=== PATIENT | female | born 1950 | race Caucasian/White ===

== ENCOUNTER → 2017-05-03 13:06 | Outpatient (CLI) | payer MEDICARE, OTHER, SELFPAY ==
[2017-05-03 14:16] LABS: Absolute Lymphocyte Count 1.85 X10^3/ul (0.83-4.51); Absolute Neutrophil Count 4.2 X10^3/uL (2.0-7.7); Basophil# 0.04 X10^3/uL; Basophil% 0.6 % (0-1); Eosinophil# 0.16 X10^3/uL; Eosinophils% 2.4 % (0-5); Hematocrit 40.9 % (37-47); Hemoglobin 13.2 g/dl (12.0-15.0); Lymphocyte # 1.85 X10^3/ul (4.0); Lymphocyte % 27.2 % (19-41); Mean Corp Hgb Conc 32.3 g/gl (32-36); Mean Corpuscular Hgb 28.5 pg (27.0-32.0); Mean Corpuscular Volume 88.3 fL (81-99); Mean Platelet Vol. 10.9 fl (6.2-12.0); Monocyte# 0.58 X10^3/uL; Monocyte% 8.5 % (0-10); Neutrophil # 4.15 X10^3/uL (2.7-7.7); Platelet Count 225 K/mm3 (150-450); RBC Distribution Width CV 13.9 % (11.6-14.6); RBC Distribution Width SD 44.1 fl (35.1-43.9); Red Blood Count 4.63 M/mm3 (4.2-5.4); White Blood Count 6.8 K/mm3 (4.4-11.0)
[2017-05-03 14:18] LABS: POSITIVE COUNT NO; POSITIVE DIFFERENTIAL NO; POSITIVE MORPHOLOGY NO
[2017-05-03 14:23] LABS: Erythrocyte Sedimentation Rate 10 mm/hr (0-30)
--- NOTE | 2017-05-03 14:35 | HPBI_ITS ---
MAMMOGRAPHY - BILATERAL SCREENING REASON FOR EXAM: Female, 67 years old. Routine annual screening examination. PERTINENT HISTORY: Non-contributory. TECHNIQUE: Digital bilateral breast gabriela (3D mammographic acquisition) in the CC and MLO projections. 2-D mediolateral oblique (MLO) and craniocaudad (CC) views of both breasts were obtained. CAD: Full Field Digital Mammography with Computer Added Detection was performed. COMPARISON: Comparison is made with prior study dated April 25, 2016 and April 18, 2015. FINDINGS: Breast Composition: The breasts are heterogeneously dense, which may obscure small masses. There are no dominant masses or suspicious calcifications. Stable small bilateral benign appearing axillary lymph nodes. No other significant abnormalities are identified. There has been no significant change since the prior study. HPBI/SCREENING MAMM (CAD), BILAT IMPRESSION: Stable bilateral screening mammogram. Yearly follow-up mammogram recommended. (A) ASSESSMENT CATEGORY: BIRADS Category 2: Benign. A letter regarding these results will be sent to the patient by the facility within 30 days. Approximately 10% of breast cancers are not detected by mammography. A normal mammogram should not delay biopsy of a clinically suspicious abnormality. [id number] Electronically Signed: Ralph Santos MD at 15:29 EST Tel [phone], Service support ,
[2017-05-03 14:45] LABS: ALB/GLOB Ratio 1.2 RATIO (0.9-2.4); AST(SGOT) 22 U/L (15-37); Alanine Aminotransfer ALT/SGPT 39 U/L (13-56); Albumin, Serum 3.9 g/dL (3.2-5.0); Alkaline Phosphatase 80 U/L (45-117); Anion Gap 8 (5-15); BUN 20 mg/dL (7-18); BUN/Creat Ratio 25.6 RATIO (10-20); CRP < 2.90 mg/L (0.0-3.0); Calcium,Total 8.7 mg/dL (8.5-10.1); Chloride 106 mmol/L (98-107); Creatinine, Serum 0.78 mg/dL (0.55-1.02); EST Glomerular Filtration Rate 78 mL/min (>60); Est Glom Filt Rate - Afr Amer 94 mL/min (>60); Globulin 3.2 g/dL (2.2-4.2); Glucose 75 mg/dL (74-106); Potassium 3.6 mmol/L (3.5-5.1); Protein, Total 7.1 g/dL (6.4-8.2); Rheumatoid Factor < 10.0 IU/mL (<15); Sodium Level 141 mmol/L (136-145)
[2017-05-06 09:37] LABS: SJOGREN'S Anti-SS-A test < 0.2 AI (0.0-0.9); SJOGREN'S Anti-SS-B test < 0.2 AI (0.0-0.9)
[2017-05-06 10:36] LABS: ANTINUCLEAR ANTIBODIES DIRECT Positive (Negative)
[2017-05-09 16:44] LABS: CCP IgG Antibodies 7 units (0-19); HEPATITIS B SURFACE AG Positive (Negative); HLA B27 Negative (.); Hep B Surface Antibodies Non Reactive (.); Hep C Antibodies 0.1 s/co ratio (0.0-0.9)
== END ==
PROVIDERS: Internal Medicine Rheumatology; Family Provider Family Medicine; PCP Family Medicine; Visit Provider Obstetrics & Gynecology
DX: Z12.31 Encounter for screening mammogram for malignant neoplasm of breast (principal); M06.4 Inflammatory polyarthropathy; M35.00 Sjogren syndrome, unspecified; M15.9 Polyosteoarthritis, unspecified; E03.9 Hypothyroidism, unspecified; E78.5 Hyperlipidemia, unspecified; I34.1 Nonrheumatic mitral (valve) prolapse
CPT/HCPCS: 36415; 77063; 77067; 80053; 81374; 85025; 85652; 86038; 86140; 86200; 86235; 86431; 86706; 86803; 87340

== ENCOUNTER → 2017-05-27 10:55 | Outpatient (CLI) | payer MEDICARE, OTHER, SELFPAY ==
[2017-05-27 12:40] LABS: Color, Urine Yellow (Yellow); Glucose, Dipstick Normal (Normal); Ketone-Dipstick Negative (Negative); Leukocyte Esterase-Dipstick Negative /ul (Negative); Nitrite-Dipstick Negative (Negative); Occult Blood-Urine Negative /ul (Negative); Protein-Dipstick Negative (Negative); Urine Bilirubin Dipstick Negative (Negative); Urine Clarity Clear (Clear); Urine Urobilinogen Normal (Normal)
[2017-05-27 12:55] LABS: Protein, Urine (Random) 6.3 mg/dL (<11.9); Protein:Creat Ratio 346 mg/g CRE (0-200)
[2017-05-28 11:17] LABS: Complement C3 124 mg/dL (82-167)
[2017-05-28 14:07] LABS: Anti-Jo <0.2 AI (0.0-0.9); Anti-Scleroderma-70 AB <0.2 AI (0.0-0.9); RNP Ab <0.2 AI (0.0-0.9); SJOGREN'S Anti-SS-A test < 0.2 AI (0.0-0.9); SJOGREN'S Anti-SS-B test < 0.2 AI (0.0-0.9); Smith Ab <0.2 AI (0.0-0.9)
[2017-05-28 15:59] LABS: Anti-Centromere B Ab <0.2 AI (0.0-0.9); Anti-dsDNA Ab 41 IU/mL (0-9)
== END ==
PROVIDERS: Family Provider Family Medicine; PCP Family Medicine; Visit Provider Internal Medicine Rheumatology
DX: M06.4 Inflammatory polyarthropathy (principal); M35.00 Sjogren syndrome, unspecified; M15.9 Polyosteoarthritis, unspecified; E03.9 Hypothyroidism, unspecified; E78.5 Hyperlipidemia, unspecified; I34.1 Nonrheumatic mitral (valve) prolapse
CPT/HCPCS: 36415; 81002; 82570; 84156; 86160; 86225; 86235

== ENCOUNTER 2017-06-19 09:30 | Outpatient (RCR) | payer MEDICARE, OTHER, SELFPAY ==
--- NOTE | 2017-04-18 12:49 | HP.OTEVAL_ITS ---
Patient's Visit Information JACKSON WESTON is a 67 year old F, referred to Occupational Therapy by DR.DDAVIS Jazlyn, with a diagnosis of OA of R hand. Date of Evaluation: 04/18/17 Occupational Therapist: Rohini Murphy - Subjective Subjective: Pt., Jackson, arrived and noted that inital injury occured when daughters dog jammed finger. She noted this occured over a year agoa nd has since hurt. She's been seeing Dr. Muller and got x-rays in september. Pain persisted and recently recieved cortisone injection on saturday. She care for grandkids. - Pain Right Hand 0 Pain Intensity Range: 5, 6 - Objective Objective/Observation: Nodules over DIP on R hand , especially index finger. Some increased hyper ext. at R IF PIP. Decreased ROM in R IF compared to L IF. - ROM Wrist: flex R 0-63, L 0-79; ext R 0-46, L 0-55 MP: 2ND R 15-80, L 7-78 PIP: 2ND R -11-98, L5-100 DIP: 2ND R 10-41, L 12-51 - Strength Rig Hand: R 33, L 33 Lateral Pinch: R 6, L 10 Tripod Pinch: R 8, L 10 Tip-to-Tip Pinch: R 5, L 6 - Sensation Sensation Comments: Denies numbness and tingling in that finger. - DASH-Disabilities of Arm, Shoulder& Hand DASH Sum: 77 - Goals Goal:: Pt. 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 Goal:: Jackson to increase R hand and 2nd digit ROM to that of L to promote increased ability to complete manipulation and FMC to complete gardening and self-care tasks by d/c. Goal:: Jackson to have have no more than 0-1/10 pain in R hand 4/5 trials 80% of the time to complete ADL/IADLs by d/c. Goal:: Jackson to be mod I to complete energy conservation and jt protection strategies 4/5 trials in all ADL/IADLs to promote (i) and decreased pain by d/c. Goal:: Jackson to be mod I to complete all ADL/IADLs with use of a/e if needed to manage pain by d/c. Goal:: Jackson to complete HEP to promote endurance, stability , and strength of R MCP, PIP, and DIP to promote increased ability to complete ADL/IADLs by d/c. - Rehabilitation General Assessment: Jesus arrived and oT evaulation completed on this date. She noted cortisone shot occured this past saturday ad pain has been consisent in R hand around RIF MCP and PIP over the last year. She has decreased R hand mobility and strength compared to L nonaffected. OT to work on increased ROM and strength while decreasing pain. Education on a/e and other devices to help decrease hand pain to be provided. Rehabilitation Potential: Good - Anticipated Interventions Anticipated Interventions: A/AAROM/PROM, Strengthening, Edema Control, Scar Care , Massage, Modalities, Orthoses, Joint Protection/Energy Conservation, Fine Motor Coord/Priyank, Visual/Perceptual Skills, ADL Training, Caregiver Training, Home Program - Visit Plan Frequency: 2x /Week Duration: 4-6 Weeks General Plan: OT to work on decreasing painw hile increasing ROM, strength,a nd ability to complete ADL/IADLs including leisure interests of gardening. TEXT: Thank you for the opportunity to evaluate your patient. For Medicare and Medicare HMO plans, please review the plan of care and approve it. It will need to be FAXED BACK to us at [phone] for Medicare purposes. Please let me know if there are questions or concerns regarding this plan of care. Physician Signature: Date:
--- NOTE | 2017-06-19 11:52 | OTREVAL_ITS ---
Ad Muller, It has been my pleasure to treat JACKSON WESTON over the last 8 visits for OA of R hand. Please see the progress note below for an update on the occupational therapy plan of care! Subjective: Jackson arrived and noted increased pain in hand. She noted while on vacation she is doing well. She notes that they confirmed sjogrens syndrome. SHe notes started light dose of plaquenil. She noted she started new workout with therband on her own. She noted that maybe source of pain as lots of gripping to complete tasks. Pain has consistently been up and down and educated that if still troublesome she may would benefit from further follow up with doctor, especially if it is still painful when not completing exercises. OT educated on further way to decreased strain on hand when completing exercise. Objective/Function: Completed reassessment on this date. Pain has had significant increased since returning from vacation and last appointment May 20 from 03/27 to 08/25. ROM are as follows: R Index finger MCP 12-76, PIP -9-95, DIP 6-42; R wrist 0-73, ext 0-44. Strength measruements are as follows: R 50, L 53; lateral R 10, L 13; three jaw R 11, L 16; tip pinch R 8, L 10. 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 Plan Frequency: 2x /Week Duration: 4-6 Weeks Plan: continue POC 1 x 2 weeks. Complete full DASH next session. Due to pain she is to follow up with Dr. Muller and see OT after follow up. Strength and ROM are doing well compared to inital evaluation. She will follow up with OT 1x in 2 weeks to further determine cause of pain after seeing Dr. Muller. She noted she is continuing to increased plaquenil dose and is hoping that helps alievate some of the pain. In meantime she is to continue with with HEP as tolerated and continue to try and implement joint protection strategies. Goals - Goals Goal:: Pt. to increase B autotransfusionist by 10-20 lbs to promote increased ability to complete B manipulation and autotransfusionist tasks to complete ADl/IADLs by d/c. Goal:: Jackson to increase R hand and 2nd digit ROM to that of L to promote increased ability to complete manipulation and FMC to complete gardening and self-care tasks by d/c. Goal:: Jackson to have have no more than 0-1/10 pain in R hand 4/5 trials 80% of the time to complete ADL/IADLs by d/c. Goal:: Jackson to be mod I to complete energy conservation and jt protection strategies 4/5 trials in all ADL/IADLs to promote (i) and decreased pain by d/c. Goal:: Jackson to be mod I to complete all ADL/IADLs with use of a/e if needed to manage pain by d/c. Goal:: Jackson to complete HEP to promote endurance, stability , and strength of R MCP, PIP, and DIP to promote increased ability to complete ADL/IADLs by d/c. Anticipated Interventions Anticipated Interventions: A/AAROM/PROM, Strengthening, Edema Control, Scar Care , Massage, Modalities, Orthoses, Joint Protection/Energy Conservation, Fine Motor Coord/Priyank, Visual/Perceptual Skills, ADL Training, Caregiver Training, Home Program Please do not hesitate to contact me at [phone] by phone or Fax: if you have questions or concerns regarding this new plan of care! Sincerely, Rohini Murphy
--- NOTE | 2017-11-04 18:01 | HP.OTDCNRP_ITS ---
HP - Discharge Summary - Patient Information SHAUNA WESTON was seen in my office for initial evaluation on 04/18/17. The following Plan of Care was established for this patient: Initial Frequency: 2x /Week Initial Duration: 4-6 Weeks Plan: continue POC 1 x 2 weeks. Complete full DASH next session. Due to pain she is to follow up with Dr. Muller and see OT after follow up. Strength and ROM are doing well compared to inital evaluation. She will follow up with OT 1x in 2 weeks to further determine cause of pain after seeing Dr. Muller. She noted she is continuing to increased plaquenil dose and is hoping that helps alievate some of the pain. In meantime she is to continue with with HEP as tolerated and continue to try and implement joint protection strategies. - Anticipated Interventions Anticipated Interventions: A/AAROM/PROM, Strengthening, Edema Control, Scar Care , Massage, Modalities, Orthoses, Joint Protection/Energy Conservation, Fine Motor Coord/Priyank, Visual/Perceptual Skills, ADL Training, Caregiver Training, Home Program This patient was last seen in our office 06/19/17. Pertinent comments regarding their Occupational therapy will appear below: Last visit 06/19/17. She was to return for follow up in 2 weeks and did not return. Last sessions write up: Completed reassessment on this date. Pain has had significant increased since returning from vacation and last appointment May 20 from 03/27 to 08/25. ROM are as follows: R Index finger MCP 12-76, PIP - 9-95, DIP 6-42; R wrist 0-73, ext 0-44. Strength measurements are as follows: R 50, L 53; lateral R 10, L 13; three jaw R 11, L 16; tip pinch R 8, L 10. 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 At this point I will be discontinuing this patient from occupational therapy. I would be happy to see this patient again in the future if found appropriate by the physician. Thank you! Rohini Murphy
== END 2017-06-19 19:00 | disposition home or self-care (01) ==
LOC: OT 09:30
PROVIDERS: Family Provider Family Medicine; PCP Family Medicine; Visit Provider Family Medicine
DX: M19.041 Primary osteoarthritis, right hand (principal)
CPT/HCPCS: 97035; 97110; 97166; 97168; 97530; G8987; G8988

== ENCOUNTER → 2017-08-15 10:55 | Outpatient (CLI) | payer MEDICARE, OTHER, SELFPAY ==
[2017-08-15 12:18] LABS: Absolute Lymphocyte Count 1.58 X10^3/ul (0.83-4.51); Absolute Neutrophil Count 3.5 X10^3/uL (2.0-7.7); Basophil# 0.04 X10^3/uL; Basophil% 0.7 % (0-1); Eosinophil# 0.17 X10^3/uL; Eosinophils% 2.9 % (0-5); Hematocrit 40.4 % (37-47); Hemoglobin 13.2 g/dl (12.0-15.0); Lymphocyte # 1.58 X10^3/ul (4.0); Lymphocyte % 26.7 % (19-41); Mean Corp Hgb Conc 32.7 g/gl (32-36); Mean Corpuscular Hgb 28.4 pg (27.0-32.0); Mean Corpuscular Volume 86.9 fL (81-99); Mean Platelet Vol. 10.7 fl (6.2-12.0); Monocyte% 10.1 % (0-10); Neutrophil # 3.52 X10^3/uL (2.7-7.7); Neutrophil % 59.4 % (47-70); Platelet Count 216 K/mm3 (150-450); RBC Distribution Width CV 13.6 % (11.6-14.6); RBC Distribution Width SD 42.7 fl (35.1-43.9); Red Blood Count 4.65 M/mm3 (4.2-5.4); White Blood Count 5.9 K/mm3 (4.4-11.0)
[2017-08-15 12:25] LABS: AST(SGOT) 25 U/L (15-37); Alanine Aminotransfer ALT/SGPT 37 U/L (13-56); Albumin, Serum 3.6 g/dL (3.2-5.0); Alkaline Phosphatase 79 U/L (45-117); Anion Gap 10 (5-15); BUN 25 mg/dL (7-18); BUN/Creat Ratio 29.1 RATIO (10-20); Calcium,Total 8.8 mg/dL (8.5-10.1); Chloride 110 mmol/L (98-107); Creatinine, Serum 0.86 mg/dL (0.55-1.02); EST Glomerular Filtration Rate 70 mL/min (>60); Est Glom Filt Rate - Afr Amer 85 mL/min (>60); Globulin 3.6 g/dL (2.2-4.2); Glucose 76 mg/dL (74-106); Potassium 4.1 mmol/L (3.5-5.1); Protein, Total 7.2 g/dL (6.4-8.2); Sodium Level 145 mmol/L (136-145)
[2017-08-15 12:30] LABS: POSITIVE COUNT NO; POSITIVE DIFFERENTIAL NO; POSITIVE MORPHOLOGY NO
[2017-08-15 12:39] LABS: Color, Urine Yellow (Yellow); Glucose, Dipstick Normal (Normal); Ketone-Dipstick Negative (Negative); Leukocyte Esterase-Dipstick 500 /ul (Negative); Nitrite-Dipstick Negative (Negative); Occult Blood-Urine Negative /ul (Negative); Protein-Dipstick Negative (Negative); Specific Gravity, Urine 1.015 (1.002-1.030); Urine Bilirubin Dipstick Negative (Negative); Urine Clarity Clear (Clear); Urine Urobilinogen Normal (Normal); Urine pH 6.5 (5.0 - 8.0)
[2017-08-15 12:52] LABS: Protein, Urine (Random) 14.6 mg/dL (<11.9); Protein:Creat Ratio 140 mg/g CRE (0-200)
== END ==
PROVIDERS: Family Provider Family Medicine; PCP Family Medicine; Visit Provider Internal Medicine Rheumatology
DX: M06.4 Inflammatory polyarthropathy (principal); M35.00 Sjogren syndrome, unspecified; M15.9 Polyosteoarthritis, unspecified; E03.9 Hypothyroidism, unspecified; E78.5 Hyperlipidemia, unspecified; I34.1 Nonrheumatic mitral (valve) prolapse
CPT/HCPCS: 36415; 80053; 81002; 82570; 84156; 85025

== ENCOUNTER → 2017-12-19 12:21 | Outpatient (CLI) | payer MEDICARE, OTHER, SELFPAY ==
[2017-12-19 14:24] LABS: Free T3 2.8 pg/mL (2.18-3.98); T4 Free Direct 1.17 ng/dL (0.76-1.46)
== END ==
PROVIDERS: Family Provider Family Medicine; PCP Family Medicine; Referring Provider Nurse Practitioner; Visit Provider Nurse Practitioner
DX: E07.9 Disorder of thyroid, unspecified (principal)
CPT/HCPCS: 36415; 84439; 84443; 84481

== ENCOUNTER → 2018-01-24 08:32 | Outpatient (CLI) | payer MEDICARE, OTHER, SELFPAY ==
--- NOTE | 2018-01-24 08:36 | US_ITS ---
STUDY: THYROID ULTRASOUND REASON FOR EXAM: Female, 68 years old. Hypothyroidism. Dysphagia. TECHNIQUE: Ultrasound evaluation of the thyroid was performed with real-time and static vieira-scale imaging. COMPARISON: None. FINDINGS: RIGHT LOBE: The right lobe of the thyroid gland measures 3.6 x 1.4 x 1.0 cm. There is a heterogeneous echotexture. Solid lower pole nodule measuring 0.2 x 0.2 x 0.2 cm. LEFT LOBE: The left lobe of the thyroid gland measures 3.2 x 1.2 x 1.1 cm. There is a heterogeneous echotexture. There are no demonstrated solid, cystic or complex lesions. ISTHMUS: The isthmus measures 2 mm . Bilateral enlarged submandibular lymph nodes measuring 3.9 x 3.6 x 1.4 on the right and 3.7 x 3.3 x 1.3 cm left. US/Thyroid IMPRESSION: The thyroid gland is not enlarged. Bilateral submandibular lymphadenopathy. 2 mm solid inferior pole right thyroid nodule. Electronically Signed: Randy Salazar MD at 7:32 EST , Service support ,
== END ==
PROVIDERS: Family Provider Family Medicine; PCP Family Medicine; Visit Provider Nurse Practitioner
DX: E03.9 Hypothyroidism, unspecified (principal)
CPT/HCPCS: 76536

== ENCOUNTER → 2018-03-27 10:21 | Outpatient (CLI) | payer MEDICARE, SELFPAY ==
[2018-01-08 08:52] VITALS: BMI 25.1
[2018-03-27 13:46] LABS: Free T3 2.6 pg/mL (2.18-3.98); T4 Free Direct 1.22 ng/dL (0.76-1.46); Thyroid Stim Hormone (TSH) 1.15 uIU/mL (0.358-3.74)
== END ==
PROVIDERS: Family Provider Family Medicine; PCP Family Medicine; Visit Provider Nurse Practitioner
DX: E03.9 Hypothyroidism, unspecified (principal)
CPT/HCPCS: 36415; 84439; 84443; 84481

== ENCOUNTER → 2018-07-15 | Outpatient (CLI) | payer MEDICARE, OTHER, SELFPAY ==
[2018-01-08 08:52] VITALS: BMI 25.1
--- NOTE | 2018-07-15 15:20 | BI_ITS ---
MAMMOGRAPHY - BILATERAL SCREENING REASON FOR EXAM: Female, 68 years old. Routine annual screening examination. PERTINENT HISTORY: Non-contributory. TECHNIQUE: Digital bilateral breast gabriela (3D mammographic acquisition) in the CC and MLO projections. 2-D mediolateral oblique (MLO) and craniocaudad (CC) views of both breasts were obtained. CAD: Full Field Digital Mammography with Computer Added Detection was performed. COMPARISON: Comparison is made with prior study dated May 03, 2017 and April 25, 2016. FINDINGS: Breast Composition: The breasts are heterogeneously dense, which may obscure small masses. There are no dominant masses or suspicious calcifications. No other significant abnormalities are identified. There has been no significant change since the prior study. BI/SCREENING MAMM (CAD), BILAT IMPRESSION: Stable bilateral screening mammogram. Yearly follow-up mammogram recommended. (A) ASSESSMENT CATEGORY: BIRADS Category 1: Negative. A letter regarding these results will be sent to the patient by the facility within 30 days. Approximately 10% of breast cancers are not detected by mammography. A normal mammogram should not delay biopsy of a clinically suspicious abnormality. [id number] Electronically Signed: Ralph Santos, at 10:56 EDT , Service support ,
== END | disposition home or self-care (01) ==
PROVIDERS: Family Provider Family Medicine; PCP Family Medicine; Referring Provider Obstetrics & Gynecology; Visit Provider Obstetrics & Gynecology
DX: Z12.31 Encounter for screening mammogram for malignant neoplasm of breast (principal)
CPT/HCPCS: 77063; 77067

== ENCOUNTER → 2018-07-17 | Outpatient (CLI) | payer MEDICARE, OTHER, SELFPAY ==
[2018-01-08 08:52] VITALS: BMI 25.1
--- NOTE | 2018-07-17 07:47 | CDU_ITS ---
Reason For Study: Bruit/Tinnitus Rt. Velocities/BP Lt. Velocities/BP Prox CCA 100.8/16 cm/sec. Prox CCA 94.9/16.3 cm/sec. Mid CCA 76/16 cm/sec. Mid CCA 75.3/21.2 cm/sec. Dist CCA 67.3/12.4 cm/sec. Dist CCA 69.1/20 cm/sec. Prox ICA 64/19 cm/sec. Prox ICA 62.9/16.8 cm/sec. Mid ICA 90.4/34.4 cm/sec. Mid ICA 76.1/26.7 cm/sec. Dist ICA 147.6/36 cm/sec. Dist ICA 110.1/37.1 cm/sec. ICA distal to tortuosity 43.7/11.6. Lt. ICA/CCA = 1.5. Rt. ICA/CCA = 1.9. Prox ECA 78.3/10.2 cm/sec. Prox ECA 95.9/6.9 cm/sec. Lt. Vert. 54.1/16.3 cm/sec. Rt. Vert. 51.3/9.7 cm/sec. Right Extracranial There is intimal thickening but no significant atherosclerotic plaque noted in the right common carotid artery. There is homogeneous, smooth atherosclerotic plaque noted in the right internal carotid artery. Distal ICA tortuous. There is intimal thickening but no significant atherosclerotic plaque noted in the right external carotid artery. Antegrade flow is noted in the right vertebral artery. Left Extracranial There is intimal thickening but no significant atherosclerotic plaque noted in the left common carotid artery. There is homogeneous, smooth atherosclerotic plaque noted in the left internal carotid artery. There is intimal thickening but no significant atherosclerotic plaque noted in the left external carotid artery. Antegrade flow is noted in the left vertebral artery. Procedure Carotid Duplex 35043. Exam performed in department. Interpretation Summary Mild (<50%) stenosis right extracranial internal carotid. Mild (<50%) stenosis left extracranial internal carotid. Flow within the vertebral arteries is antegrade bilaterally. Ordering Physician: Ihsan Dotson Referring Physician: DORINA Elise M.D. Performed By: Jennifer Lowery RVT
== END | disposition home or self-care (01) ==
PROVIDERS: Family Provider Family Medicine; PCP Family Medicine; Referring Provider Otolaryngology; Visit Provider Otolaryngology
DX: H93.11 Tinnitus, right ear (principal); R09.89 Other specified symptoms and signs involving the circulatory and respiratory systems
CPT/HCPCS: 93880

== ENCOUNTER → 2018-10-27 09:27 | Outpatient (CLI) | payer MEDICARE, OTHER, SELFPAY ==
[2018-01-08 08:52] VITALS: BMI 25.1
[2018-10-27 10:47] LABS: Free T3 2.4 pg/mL (2.18-3.98); T4 Free Direct 1.11 ng/dL (0.76-1.46); Thyroid Stim Hormone (TSH) 0.19 uIU/mL (0.358-3.74)
== END ==
PROVIDERS: Family Provider Family Medicine; PCP Family Medicine; Referring Provider Nurse Practitioner; Visit Provider Nurse Practitioner
DX: E03.9 Hypothyroidism, unspecified (principal)
CPT/HCPCS: 36415; 84439; 84443; 84481

== ENCOUNTER → 2019-02-26 12:23 | Outpatient (CLI) | payer SELFPAY ==
--- NOTE | 2019-02-26 12:28 | CT_ITS ---
STUDY: CARDIAC CALCIUM SCORING - CT CHEST REASON FOR EXAM: Female, 69 years old. Family history of heart disease RADIATION DOSAGE (If Supplied By Facility): CTDIvol = ( 10.22 ) mGy, DLP = ( 346.59 ) mGycm TECHNIQUE: Axial non-enhanced images were acquired through the heart for the sole purpose of measuring coronary artery calcium. Individualized dose optimization techniques were used for this CT. COMPARISON: None. FINDINGS: Please see the patient''s medical record for additional list calcium score. The visualized lungs are clear. The visualized soft tissues are within normal limits. CT/Limited Chest CT w/CCTA IMPRESSION: Please see the patient''s medical record for additional list calcium score. Please go to: [email or web address] , for a description of the calculator. Electronically Signed: Donovan Guerrero, at 17:13 EST Tel , Service support ,
[2019-02-26 12:42] VITALS: BP 138/48; PULSE 63; RESP 16; O2SAT 99; BMI 25.5
--- NOTE | 2019-02-26 15:43 | CA.SCORE ---
Calcium Scoring Date of Study:: 02/26/19 Coronary Calcium Scoring: High-resolution Computed Tomographic imaging of the chest was performed on [ ], with particular attention paid to the coronary arteries. Images from the examination were analyzed for the presence and extent of coronary artery calcification , using coronary calcium quantification software. The patient tolerated the procedure well and there were no complications. The results of the coronary calcification analysis are provided below. - Findings Left Main (LM): 0 Left Anterior Descending (LAD): 1.59 Left Circumflex (LCX): 0.79 Right Coronary Artery (RCA): 0 Total Agatston Score: 2.38 Percentile Rankin Calcium Scoring Interpretation: 1-10 Minimal Plaque burden. Significant coronary artery disease very unlikely. Calcium Score: 0 Negative Examination
== END ==
PROVIDERS: Family Provider Family Medicine; PCP Family Medicine; Referring Provider Nurse Practitioner Family; Visit Provider Nurse Practitioner Family
DX: E78.5 Hyperlipidemia, unspecified (principal); Z13.6 Encounter for screening for cardiovascular disorders
CPT/HCPCS: 75571; 76380

== ENCOUNTER → 2019-11-20 | Outpatient (CLI) | payer MEDICARE, OTHER, SELFPAY ==
[2019-02-26 12:42] VITALS: BMI 25.5
--- NOTE | 2019-11-20 14:45 | BI_ITS ---
MAMMOGRAPHY - BILATERAL SCREENING REASON FOR EXAM: Female, 69 years old. Routine annual screening examination. PERTINENT HISTORY: Non-contributory. TECHNIQUE: Digital bilateral breast tracy (3D mammographic acquisition) in the CC and MLO projections. 2-D mediolateral oblique (MLO) and craniocaudad (CC) views of both breasts were obtained. CAD: Full Field Digital Mammography with Computer Added Detection was performed. COMPARISON: Comparison is made with prior study dated 07/15/2018 and 05/03/2017. FINDINGS: Breast Composition: The breasts are heterogeneously dense, which may obscure small masses. There are no dominant masses or suspicious calcifications. Stable small benign-appearing bilateral axillary lymph nodes. No other significant abnormalities are identified. There has been no significant change since the prior study. BI/SCREEN MAMM (CAD) W/TRACY BILAT IMPRESSION: Stable bilateral screening mammogram. Yearly follow-up mammogram recommended. (A) ASSESSMENT CATEGORY: BIRADS Category 2: Benign. A letter regarding these results will be sent to the patient by the facility within 30 days. Approximately 10% of breast cancers are not detected by mammography. A normal mammogram should not delay biopsy of a clinically suspicious abnormality. [id number] Electronically Signed: Ralph Santos, at 15:29 EDT , Service support ,
== END | disposition home or self-care (01) ==
LOC: OPBI 14:44
PROVIDERS: PCP Family Medicine; Referring Provider Obstetrics & Gynecology; Visit Provider Obstetrics & Gynecology
DX: Z12.31 Encounter for screening mammogram for malignant neoplasm of breast (principal)
CPT/HCPCS: 77063; 77067

== ENCOUNTER 2020-09-28 14:42 | Emergency (ER) | payer MEDICARE, OTHER, SELFPAY ==
[2019-02-26 12:42] VITALS: BMI 25.5
[2020-09-28 14:43] VITALS: BP 123/73; PULSE 65; RESP 16; TEMP 36.1; O2SAT 95; BMI 26.0
--- NOTE | 2020-09-28 15:03 | EX.ED.UPPERE ---
HPI History of Present Illness Chief Complaint: Upper Extremity Injury Detail of Chief Complaint: Fall with injury to left wrist Informant: patient and spouse/S.O. Onset/Context/Timing Onset: Today Narrative Narrative: Patient presents to the emergency department with an injury to her left wrist that occurred about an hour ago. Patient states that she was trying to free a bird that was trapped in a chipmunk trap when she lost her balance and fell backwards. Patient try to brace herself with her left wrist and injured it. She is right-hand dominant. She denies any other injuries. [facility] Medical History (Updated 09/28/20 @ 15:[address] Luis Delaney, DO) Arthritis GERD (gastroesophageal reflux disease) Hearing problem Hormone deficiency Hyperlipidemia Hypothyroidism Mitral valve disease Osteopenia Seasonal allergies Sjogren's disease Home Medications Synthroid 75 mcg tablet 75 mcg PO DAILY #90 tab NS 01/08/18 [Rx Last Taken Unknown] amitriptyline 10 mg tablet 10 mg PO QHS 01/08/18 [History Last Taken Unknown] ascorbic acid (vitamin C) 500 mg capsule mg PO cap 01/08/18 [History Last Taken Unknown] atorvastatin 40 mg tablet 40 mg PO DAILY 01/08/18 [History Last Taken Unknown] calcium carbonate 500 mg (1,250 mg)-vitamin D3 200 unit tablet 2 tab PO ONCE 01/08/18 [History Last Taken Unknown] coenzyme Q10 75 mg capsule 75 mg PO DAILY 01/08/18 [History Last Taken Unknown] cyclosporine 0.05 % eye drops 1 drp OPHTHALMIC Q12H 01/08/18 [History Last Taken Unknown] famotidine 20 mg tablet 20 mg PO BID 01/08/18 [History Last Taken Unknown] liothyronine 5 mcg tablet 2.5 mcg PO DAILY #45 tab NS 01/08/18 [Rx Last Taken Unknown] magnesium glycinate 100 mg tablet 100 mg PO DAILY tab 01/08/18 [History Last Taken Unknown] turmeric (bulk) 95 % powder % MISCELLANEOUS g 01/08/18 [History Last Taken Unknown] hydrocodone-acetaminophen 1 tab PO Q4H PRN PRN 3 Days #15 tablet 09/28/20 [Rx Last Taken Unknown] Allergy/AdvReac Type Severity Reaction Status Date / Time azithromycin [From Zithromax] Allergy Unknown Unknown Verified 01/08/18 08:53 latex Allergy Unknown Unknown Verified 01/08/18 08:53 Sulfa (Sulfonamide Allergy Unknown Unknown Verified 01/08/18 08:53 Antibiotics) Family History (Updated 01/08/18 @ 08:50 by Karyn Toney) Mother Heart disease Uterine cancer Father Hyperlipidemia Surgical History H/O: hysterectomy Hx of appendectomy Social History (Updated 01/08/18 @ 13:14 by Angeline Jorgensen LUNCHEONETTE OPERATOR, LUNCHEONETTE OPERATOR-C) Smoking Status: Never smoker second hand exposure: No alcohol intake: current alcohol intake frequency: a few times a month substance use type: does not use ROS ROS ED Constitutional Constitutional ED: Reports systems reviewed and no addt'l complaints, except as documented; Denies body ache(s), change in weight or chills Eyes Eyes: Denies acute decrease in peripheral vision, change in vision, double vision or loss of vision ENT ENT ED: Reports none; Denies ear pain, lip swelling, loss taste/smell, neck pain, otalgia or sore throat Cardiovascular Cardiovascular: Reports none; Denies abdominal pain, chest pain with activity, leg edema, lightheadedness, palpitations, rapid heart rate or syncope Respiratory/Chest Respiratory/Chest: Reports none; Denies change in mental status, dry cough, dyspnea, hemoptysis, shortness of breath at rest or shortness of breath with exertion Gastrointestinal Gastrointestinal: Reports none; Denies abdominal pain, change in stool character, diarrhea, hematemesis, hematochezia, melena, rectal bleeding or vomiting Genitourinary Genitourinary ED: Reports none; Denies abdominal discomfort, anuria, dysuria, genital pain or polyuria Musculoskeletal Musculoskeletal: Reports none and other Details: Left wrist injury ; Denies arthralgias, back pain, difficulty walking, extremity pain, muscle weakness or myalgias Integumentary Reports none; Denies abscess or rash Neurologic Neurologic: Reports none; Denies abnormal gait, confusion, focal weakness, frequent falls, headache(s), loss of vision, numbness, paresthesias, radicular pain, vertigo or weakness Psychiatric Psychiatric: Reports systems reviewed and no addt'l complaints, except as documented and none; Denies behavioral changes, confusion, difficulty concentrating, hallucinations, suicidal ideation, tactile hallucinations or visual hallucinations Endocrine Endocrinology: Denies none, cold intolerance, excessive sweating, fatigue or heat intolerance Hematologic/Lymphatic Hematologic/Lymphatic: Reports none; Denies anemia, easy bleeding or easy bruising Allergic/Immunologic Allergic/Immunologic ED: Denies as per HPI, none, lip swelling, mouth swelling, throat swelling, tongue swelling or hives EXAM Physical Exam Const Vital Signs: 09/28/20 14:43 Temperature 97.0 F L Temperature Source Temporal Pulse Rate 65 Respiratory Rate 16 Blood Pressure 123/73 H Blood Pressure Mean 89 Pulse Ox 95 Oxygen Delivery Method Room Air Positive well nourished and well developed General Appearance ED: well developed and NAD HEENT Reports TM's clear and moist mucous membranes normocephalic and atraumatic; Negative for trauma or tenderness Tympanic Membrane ED: Yes TM's clear Eyes PERRL and EOMs intact bilaterally General Eye ED: Negative for pale conjunctiva or scleral icterus Neck no lymphadenopathy, supple and no JVD General: Negative for tenderness Chest Wall inspection of chest normal and palpation of chest normal Chest: Negative for tenderness Resp normal respiratory effort and clear to auscultation bilaterally Effort and Inspection: Negative for respiratory distress or pain with movement Auscultation: Negative for rhonchi, wheezes or diminished lung sounds Cardio regular rate, regular rhythm, S1 normal heart sound, S2 normal heart sound and no murmurs Peripheral Pulses: pulses 2+ throughout GI normal to inspection, nondistended, normoactive bowel sounds, soft to palpation, non-tender, non-distended and no masses Back/Spine no CVA tenderness and no thoracic nor lumbar tenderness Extremity Extremity Narrative: Valuation of the left wrist reveals some diffuse soft tissue swelling with mild deformity noted. Patient has pain with flexion extension at the wrist. She is neurovascular intact distally. No real tenderness at the elbow or shoulder on exam. General Extremety ED: Yes edema General Extremity: edema Neuro oriented x3, CN's II-XII intact bilaterally, no sensory deficits noted and gait normal Sensorium / Orientation: awake, alert, oriented to person, oriented to place and oriented to time Motor Exam: strength 5/5 throughout and strength abnormal Psych mental status grossly normal Skin no rashes or lesions noted and no wounds MDM MDM MDM Narrative Medical decision making narrative: Patient has a comminuted displaced and intra-articular fracture of the distal radius as well as the ulnar styloid. Case was discussed with orthopedic surgeon on-call Dr. Leonid Franklin who asked that we place patient in a splint and have her follow-up with our office. This fracture is likely going to require operative intervention. She is not a good candidate for sedation for reduction given that she had a large meal recently. Patient was placed in a volar splint and will be given a sling. She is given a prescription for Kinsman. Patient to follow-up with orthopedics within next 3 to 5 days. Lab Data Attestation: I reviewed the patient's lab results. Radiography Diagnostic Testing: Three-view x-rays of the left wrist obtained interpreted by myself as comminuted fracture that is intra-articular of the left distal radius and also fracture of the ulnar styloid. Radiology in agreement. Discharge Plan Triage Chief Complaint: Upper Extremity Injury ED Provider: Luis Delaney Dx/Rx/DC Orders Clinical Impression: Distal radial fracture Instructions: ED Colles Fracture No Reduction ... Prescriptions: New hydrocodone-acetaminophen [hydrocodone-acetaminophen] 1 TABLET tablet 1 tab PO Q4H PRN PRN (Reason: Pain) 3 Days Qty: 15 RF: 0 No Action Restasis MultiDose 0.05 % drops 1 drp OPHTHALMIC Q12H RF: 0 atorvastatin 40 mg tablet 40 mg PO DAILY RF: 0 famotidine 20 mg tablet 20 mg PO BID RF: 0 amitriptyline 10 mg tablet 10 mg PO QHS RF: 0 Ultra CoQ10 75 mg capsule 75 mg PO DAILY RF: 0 calcium carbonate-vitamin D3 [Calcium 500 + D] 500 mg(1,250mg) -200 unit tablet 2 tab PO ONCE RF: 0 magnesium glycinate 100 mg tablet 100 mg tablet 100 mg PO DAILY RF: 0 turmeric (bulk) 95 % powder 95 % powder miscellaneous RF: 0 ascorbic acid (vitamin C) 500 mg capsule PO RF: 0 levothyroxine [Synthroid] 75 mcg tablet 75 mcg PO DAILY Qty: 90 RF: 3 liothyronine 5 mcg tablet 2.5 mcg PO DAILY Qty: 45 RF: 3 Primary Care Provider: Hamzah Elise III Referrals: Hamzah Elise III, MD [Primary Care Provider] - Leonid Franklin DO [STAFF PHYSICIAN] - 3-5 Days Disposition Disposition: Home, Self Care
--- NOTE | 2020-09-28 15:17 | RAD_ITS ---
STUDY: X-RAY - LEFT WRIST REASON FOR EXAM: Female, 70 years old. Injury TECHNIQUE: 3 view(s) of the wrist were obtained. COMPARISON: None. FINDINGS: There is a nondisplaced comminuted transverse fracture of the distal radial metaphysis with extension to the articular surface. Mild degree of dorsal facing. There is also evidence of an avulsion fracture of the ulnar styloid. Normal radiocarpal articulation. Normal distal radioulnar articulation. Normal carpal bones. Normal carpal articulations. There is degenerative arthrosis of the carpometacarpal articulation of the thumb. Normal second through fifth carpometacarpal articulations. Normal visualized metacarpal bones. Soft tissue swelling. RAD/Wrist min 3 Views IMPRESSION: Soft tissue swelling. Nondisplaced comminuted fracture of the distal radial metaphysis with extension to the articular surface and dorsal facing. Avulsion fracture of the ulnar styloid. Electronically Signed: Ralph Santos MD at 15:36 EDT , Service support ,
== END 2020-09-28 16:09 | disposition home or self-care (01) ==
PROVIDERS: Emergency Provider Emergency Medicine; PCP Family Medicine
DX: S52.572A Other intraarticular fracture of lower end of left radius, initial encounter for closed fracture (principal); S52.612A Displaced fracture of left ulna styloid process, initial encounter for closed fracture; M19.90 Unspecified osteoarthritis, unspecified site; K21.9 Gastro-esophageal reflux disease without esophagitis; E78.5 Hyperlipidemia, unspecified; E03.9 Hypothyroidism, unspecified; Z79.899 Other long term (current) drug therapy; W18.30XA Fall on same level, unspecified, initial encounter; Y93.89 Activity, other specified; Y92.007 Garden or yard of unspecified non-institutional (private) residence as the place of occurrence of the external cause; Y99.8 Other external cause status
CPT/HCPCS: 73110; 99283

== ENCOUNTER → 2020-12-02 13:11 | Outpatient (CLI) | payer MEDICARE, OTHER, SELFPAY ==
--- NOTE | 2020-12-02 13:12 | BI_ITS ---
MAMMOGRAPHY - BILATERAL SCREENING REASON FOR EXAM: Female, 70 years old. Routine annual screening examination. PERTINENT HISTORY: Non-contributory. TECHNIQUE: Digital bilateral breast tracy (3D mammographic acquisition) in the CC and MLO projections. 2-D mediolateral oblique (MLO) and craniocaudad (CC) views of both breasts were obtained. CAD: Full Field Digital Mammography with Computer Added Detection was performed. COMPARISON: Comparison is made with prior examination of 11/20/2019 and 07/15/2018. FINDINGS: Breast Composition: The breasts are heterogeneously dense, which may obscure small masses. There are no dominant masses or suspicious calcifications. Stable small benign appearing bilateral axillary lymph nodes. No other significant abnormalities are identified. There has been no significant change since the prior study. BI/SCRN MAMM (CAD)W/TRACY BILAT IMPRESSION: Stable bilateral screening mammogram. Yearly follow-up mammogram recommended. (A) ASSESSMENT CATEGORY: BIRADS Category 2: Benign. A letter regarding these results will be sent to the patient by the facility within 30 days. Approximately 10% of breast cancers are not detected by mammography. A normal mammogram should not delay biopsy of a clinically suspicious abnormality. [id number] Electronically Signed: Ralph Santos MD at 14:21 EDT , Service support ,
== END ==
PROVIDERS: PCP Family Medicine; Referring Provider Obstetrics & Gynecology; Visit Provider Obstetrics & Gynecology
DX: Z12.31 Encounter for screening mammogram for malignant neoplasm of breast (principal)
CPT/HCPCS: 77063; 77067

== ENCOUNTER → 2021-02-14 11:42 | Outpatient (CLI) | payer MEDICARE, OTHER, SELFPAY ==
--- NOTE | 2021-02-14 13:20 | STRESSREP ---
Stress Test Report Date: 02-14-2021 Procedure: Exercise tolerance test Indications: Chest pain Consent: Per the patient Procedure: The patient exercised on a Jone protocol for 6 minutes completing Stage II achieving a peak heart rate of 130 bpm (88% predicted maximal heart rate) with a peak blood pressure 130/68 mmHg and a peak MET capacity of approximately 7 MET's. The baseline ECG demonstrated sinus rhythm. The peak exercise ECG demonstrated no obvious ECG changes. There were no cardiac dysrhythmias pretest, during exercise, or recovery. The functional capacity was considered good. The patient had no complaint of chest discomfort during exercise or recovery. The examination was discontinued secondary to dyspnea. Impression: 1. Technically adequate (percent predicted maximal heart rate greater than 85%) exercise tolerance test 2. Peak exercise ECG with no obvious ECG changes 3. There were no cardiac dysrhythmias during exercise or recovery This note was generated with [employer] software. It may contain incorrect words, spelling, and punctuation that were not noted in checking the note before signing.
== END ==
PROVIDERS: PCP Family Medicine; Referring Provider Family Medicine; Visit Provider Family Medicine
DX: R07.89 Other chest pain (principal)
CPT/HCPCS: 93017

== ENCOUNTER → 2021-02-24 10:01 | Outpatient (CLI) | payer MEDICARE, OTHER, SELFPAY ==
[2021-02-24 10:52] LABS: Erythrocyte Sedimentation Rate 29 mm/hr (0-30)
[2021-02-24 11:20] LABS: CRP < 2.90 mg/L (0.0-3.0); Ferritin 61 ng/mL (8-252); LDH 203 U/L (84-246)
[2021-02-24 11:39] LABS: HIV - WCH Non-Reactive (Nonreactive)
[2021-02-25 16:08] LABS: Anti-Centromere B Ab <0.2 AI (0.0-0.9); Anti-Chromatin 0.2 AI (0.0-0.9); Anti-Jo <0.2 AI (0.0-0.9); Anti-Scleroderma-70 AB <0.2 AI (0.0-0.9); RNP Ab <0.2 AI (0.0-0.9); SJOGREN'S Anti-SS-A test < 0.2 AI (0.0-0.9); SJOGREN'S Anti-SS-B test < 0.2 AI (0.0-0.9); Smith Ab <0.2 AI (0.0-0.9)
[2021-02-25 16:15] LABS: Anti-dsDNA Ab 29 IU/mL (0-9)
[2021-02-28 05:07] LABS: Angiotensin Convert Enzyme 55 U/L (14-82); Ceruloplasmin 27.9 mg/dL (19.0-39.0); Cytoplasmic Ab (C-ANCA) <1:20 titer (Neg:<1:20); Hepatitis A IgM Antibody Negative (Negative); Hepatitis B Core AB IgM Negative (Negative)
[2021-02-28 15:29] LABS: AFP, Tumor Marker 2.3 ng/mL (0.0-8.3); Anti-Smooth Muscle ABS 5 Units (0-19); Copper, Serum or Plasma 113 ug/dL (80-158); HEPATITIS B SURFACE AG Positive (Negative); Haptoglobin 166 mg/dL (42-346); Hep C Antibodies 0.1 s/co ratio (0.0-0.9); Perinuclear Ab (P-ANCA) <1:20 titer (Neg:<1:20)
[2021-03-01 00:06] LABS: Beef <0.10 kU/L (Class 0); Corn <0.10 kU/L (Class 0); Egg, Whole <0.10 kU/L (Class 0); Milk (Cow) <0.10 kU/L (Class 0); Peanut <0.10 kU/L (Class 0); Pork <0.10 kU/L (Class 0); Soybean <0.10 kU/L (Class 0); Wheat <0.10 kU/L (Class 0)
[2021-03-01 09:41] LABS: Anti-Mitochondrial AB <20.0 Units (0.0-20.0); Chocolate <0.10 kU/L (Class 0)
== END ==
PROVIDERS: PCP Family Medicine; Referring Provider Nurse Practitioner Adult Health; Visit Provider Nurse Practitioner Adult Health
DX: B19.10 Unspecified viral hepatitis B without hepatic coma (principal); R19.7 Diarrhea, unspecified
CPT/HCPCS: 36415; 80074; 82105; 82164; 82390; 82525; 82728; 83010; 83516; 83615; 85652; 86003; 86005; 86140; 86225; 86235; 86256; 86703

== ENCOUNTER 2021-06-01 09:08 | Day surgery (SDC) | payer MEDICARE, OTHER, SELFPAY ==
[2021-06-01] VITALS (7 sets, daily range): BP systolic 112–141; BP diastolic 55–92; PULSE 65–75; RESP 16; TEMP 36.3–36.6; O2SAT 97–100; BMI 24.7
[2021-06-01] MEDS: Lactated Ringers 1,000 ML 15 ML IV (09:47)
--- NOTE | 2021-06-01 10:15 | IMM_PTH ---
PATIENT: SHAUNA WESTON LOC: EN U#:[id number] AGE/SX: 71/F ROOM: RE06/01/[address]: Dr. Alessandro Caicedo DO : 1950 BED: DIS: 06/01/2021 SPEC #: [id number] RECD: 06/02/21 10:11 STATUS: SHIRLENE REQ #: [id number] ABRAHAM: 06/01/21 10:[address]: Alessandro Caicedo DEPT: IMMUNOHISTOCHEMISTRY RECD BY: Elizabeth Jorgensen ENTERED: 06/02/21 10:12 SP TYPE: IMMUNO OTHR DR: Dr. Connor Melgar MD Tissues: B - Pyloric antrum Procedures: H Pylori (initial) PHYSICIAN & [place] [id number] SPECIMEN INFORMATION: Tissue Source: B ? Prepyloric region biopsy Clinical Info: Diarrhea, hepatitis B Specimen Number: [id number] CPT code: 63782 METHODOLOGY: Deparaffinized sections of prefer/formalin-fixed tissue or PAP/DQ stained slides are incubated with monoclonal/polyclonal antibodies/oligonucleotide probes. Localization is made via biotin free immunoperoxidase method. Appropriate controls are performed and reacted as expected. Results on target cell population are indicated in the following table: RESULTS: ANTIBODY / CLONE RESULT Block B H Pylori (polyclonal) negative These tests were developed and their performance characteristics determined by [facility]. They may not have been cleared or approved by the U.S. Food and Drug Administration. The FDA has determined that such clearance or approval is not necessary. INTERPRETATION: B. Prepyloric region, biopsy: Negative for Helicobacter pylori organisms. SANDY:gloria 06/05/2021
--- NOTE | 2021-06-01 10:15 | EGD_PTH ---
PATIENT: SHAUNA WESTON LOC: EN U#:[id number] AGE/SX: 71/F ROOM: RE06/01/[address]: Dr. Alessandro Caicedo DO : 1950 BED: DIS: 06/01/2021 SPEC #: [id number] RECD: 06/01/21 14:19 STATUS: SHIRLENE [place] #: [id number] ABRAHAM: 06/01/21 10:[address]: Alessandro Caicedo DEPT: SURGICAL PATHOLOGY RECD BY: Laurie Low ENTERED: 06/02/21 08:56 SP TYPE: EGD BIOPSY OT DR: Dr. Connor Melgar MD Tissues: A - Duodenum, NOS B - Pylorus C - Esophagus, NOS D - COLON BIOPSY E - Anal region Procedures: Special Stain Group II Surgery Specimen Level IV Alcian Blue/PAS (control) HEADER OPERATION: Colonoscopy, EGD ([facility] [place]), biopsy PRE-OP DIAGNOSIS: Diarrhea, hepatitis B TISSUE SUBMITTED: A ? Duodenum biopsy, B ? Prepyloric region biopsy, C ? Distal esophagus biopsy, D ? Random colonic biopsy, E ? Anal biopsy MICROSCOPIC DIAGNOSIS A. Duodenum, biopsy: Fragments of duodenal mucosa, no pathologic diagnosis. B. Prepyloric region, biopsy: Mild gastritis. See microscopic description and comment. C. Distal esophagus, biopsy: Fragments of gastroesophageal mucosa with mild chronic inflammation. Rare cells with intestinal metaplasia (goblet cell metaplasia). Negative for dysplasia. See comment. D. Colon, random biopsy: Fragments of colonic mucosa, no pathologic diagnosis. E. Anal biopsy: Fragments of colonic mucosa with ulceration, acute and chronic inflammation and focal ischemic changes. SJ:gloria 06/05/2021 COMMENT B. The results of immunohistochemistry for Helicobacter pylori will be reported separately ([id number]). C. Intestinal metaplasia is noted only in the Alcian blue/PAS stain. Alcian blue/PAS stain with matched control is used in the evaluation of the specimen. Case has been reviewed in consultation with Dr. Berkowitz who concurs with the above diagnosis. IDC:AM MICROSCOPIC DESCRIPTION Slides are reviewed. B. The specimen shows fragments of gastric mucosa with chronic inflammatory cell infiltrates in the lamina propria consisting of lymphocytes and plasma cells, consistent with mild chronic gastritis. GROSS DESCRIPTION A - Received in fixative is one container labeled with the patient's name and designated duodenum biopsy. The specimen consists of two irregular fragments of light clemente soft tissue that in aggregate measure 0.5 x 0.3 x 0.1 cm. The specimen is totally submitted in one cassette. B - Received in fixative is one container labeled with the patient's name and designated prepyloric region biopsy. The specimen consists of two irregular fragments of light clemente soft tissue that in aggregate measure 0.5 x 0.2 x 0.1 cm. The specimen is totally submitted in one cassette. C - Received in fixative is one container labeled with the patient's name and designated distal esophagus. The specimen consists of two irregular fragments of light clemente soft tissue that in aggregate measure 0.6 x 0.2 x 0.1 cm. The specimen is totally submitted in one cassette. D - Received in fixative is one container labeled with the patient's name and designated random colon biopsy. The specimen consists of multiple irregular fragments of light clemente soft tissue that in aggregate measure 2.5 x 1 x 0.2 cm. The specimen is totally submitted in one cassette. E - Received in fixative is one container labeled with the patient's name and designated anal biopsy. The specimen consists of multiple irregular fragments of light clemente soft tissue that in aggregate measure 0.6 x 0.5 x 0.1 cm. The specimen is totally submitted in one cassette. / AM:gloria 06/02/2021 TC:2 [facility]: [id number] [id number], [id number]
--- NOTE | 2021-06-01 11:11 | PCM.HP.BLA ---
History and Physical Date of Admission: 06/01/21 71 F who presents to the office today for Dr. Ryan performed bloodwork found hepatitis B flags. (Hepatitis B core negative, Hep B viral quantitative elevated 5,470, Hep B surface AB quant negative, Hep B surface Ag initally reactive and confirmed positive). Reports dry eyes and constant fatigue. RLQ sharp, stabbing pain lasting for a couple seconds and the dissipating occurring originally daily and has been increasing in frequency of late. Reports messy stools once or twice a week without urgency. Takes pepto-bismol taken and effective for management. US RUQ performed [facility] 11/12/18 - found multiple mobile stones. History of elevated triglycerides, hyperlipidemia (lipitor started one week ago), anxiety, fibromyalgia, hypothyroid, depression (prozac 20mg helpful), insomnia. ROS Const Constitutional: Positive for fatigue, frequent falls and weight change (intended) Eyes Eyes: Positive for blurry vision, irritation and discharge ENT ENT: Positive for nasal congestion Gastro GI: Positive for abdominal pain, bloating and heartburn Musc Musculoskeletal: Positive for joint pain and Arthritis Neuro Neurology: Positive for frequent falls Psych Psychiatric: Positive for depression Endo Endocrine: Positive for cold intolerance, fatigue and heat intolerance Exam Const General: cooperative and comfortable Nutritional Appearance: average body habitus and well nourished [facility] Head: normal to inspection Ears: hearing grossly normal bilaterally Nose: external nose normal Face and sinus: normal facial exam Mouth: oral mucosae normal Throat: posterior oropharynx normal Eyes General: appearance normal, both eyes and all related structures Neck Neck: normal visual inspection Chest Chest palpation & inspection: normal inspection of the chest and normal palpation of entire chest wall Resp Effort & Inspection: normal respiratory effort Auscultation: Bilateral: Clear to Auscultation Cardio Palpation: normal PMI Rate: regular rate Rhythm: regular rhythm GI Inspection: normal to inspection Auscultation: normal bowel sounds Percussion: normal to percussion Palpation: no hepatosplenomegaly Skin General: no rashes or lesions noted Neuro General: patient alert Extrem General: normal to inspection Psych Affect: normal affect Quality Reporting Tobacco Screening ([facility] 138) Smoking Status: Never smoker Assessment and Plan Assessment and Plan (1) Hepatitis B: Status: Acute Orders: Orders: CRP 02/24/21 Elzbieta Jimenez INDUSTRIAL RELATIONS DIRECTOR, INDUSTRIAL RELATIONS DIRECTOR-C AFP, Tumor Marker 02/24/21 Elzbieta Jimenez INDUSTRIAL RELATIONS DIRECTOR, INDUSTRIAL RELATIONS DIRECTOR-C LDH 02/24/21 Elzbieta Jimenez INDUSTRIAL RELATIONS DIRECTOR, INDUSTRIAL RELATIONS DIRECTOR-C Erythrocyte Sed Rate 02/24/21 Elzbieta Jimenez INDUSTRIAL RELATIONS DIRECTOR, INDUSTRIAL RELATIONS DIRECTOR-C Ferritin 02/24/21 Elzbieta Jimenez INDUSTRIAL RELATIONS DIRECTOR, INDUSTRIAL RELATIONS DIRECTOR-C Anti-Mitochondrial AB 02/24/21 Elzbieta Jimenez INDUSTRIAL RELATIONS DIRECTOR, INDUSTRIAL RELATIONS DIRECTOR-C Hepatitis Panel Acute 02/24/21 Elzbieta Jimenez INDUSTRIAL RELATIONS DIRECTOR, INDUSTRIAL RELATIONS DIRECTOR-C Angiotensin Convert Enzyme 02/24/21 Elzbieta Jimenez INDUSTRIAL RELATIONS DIRECTOR, INDUSTRIAL RELATIONS DIRECTOR-C ANCA 02/24/21 Elzbieta Jimenez INDUSTRIAL RELATIONS DIRECTOR, INDUSTRIAL RELATIONS DIRECTOR-C Anti-Smooth Muscle ABS 02/24/21 Elzbieta Jimenez INDUSTRIAL RELATIONS DIRECTOR, INDUSTRIAL RELATIONS DIRECTOR-C Ceruloplasmin 02/24/21 Elzbieta Jimenez INDUSTRIAL RELATIONS DIRECTOR, INDUSTRIAL RELATIONS DIRECTOR-C Copper, Serum or Plasma 02/24/21 Elzbieta Jimenez INDUSTRIAL RELATIONS DIRECTOR, INDUSTRIAL RELATIONS DIRECTOR-C Haptoglobin 02/24/21 Elzbieta Jimenez INDUSTRIAL RELATIONS DIRECTOR, INDUSTRIAL RELATIONS DIRECTOR-C HIV - [facility] 02/24/21 Elzbieta Jimenez INDUSTRIAL RELATIONS DIRECTOR, INDUSTRIAL RELATIONS DIRECTOR-C Plan - Dr. Francois Friend, DO: She is no signs of cirrhosis by imaging or by physical examination. We will draw labs to see if she has any other coexisting liver disease. Also the natural history of chronic hepatitis B was discussed with the patient. She has been with her for years. I encouraged her to get him tested for hepatitis C. I will start her tenofovir 300 mg a day. The risk and benefits of treating hepatitis B was discussed with the patient. All questions was answered in the presence of her sister. (2) Diarrhea: Status: Acute Orders: Orders: Allergen, Rast Food Profile 02/24/21 Elzbieta Almonte Tony INDUSTRIAL RELATIONS DIRECTOR, INDUSTRIAL RELATIONS DIRECTOR-C Plan - Dr. Francois Friend, DO: We will try to treat allergies along with other biochemical testing for her diarrhea. This would diagnosis does include celiac disease, microscopic colitis, IBS with diarrhea. She should get an upper endoscopy tomorrow to evaluate her upper GI tract and perform biopsies acid. Plan Details Other Medications: New: tenofovir disoproxil fumarate 300 mg PO DAILY [address] Francois Friend, DO I have re-examined the patient. There are no clinical changes since date of exam.
--- NOTE | 2021-06-01 12:11 | OP.EGD_ITS ---
Patient Name: Jackson Juan Procedure Date: 06/01/2021 11:13 AM Date of : 1950 Age: 71 Procedure: Upper GI endoscopy Indications: Epigastric abdominal pain Providers: Alessandro Caicedo DO Medicines: See the Anesthesia note for documentation of the administered medications Patient Profile: This is a 71 year old female. Refer to note in patient chart for documentation of history and physical. Patient has symptoms of chronic abdominal cramping and chronic epigastric abdominal pain. Complications: No immediate complications. Procedure: Pre-Anesthesia Assessment: - Prior to the procedure, a History and Physical was performed, and patient medications and allergies were reviewed. The patient is competent. The risks and benefits of the procedure and the sedation options and risks were discussed with the patient. All questions were answered and informed consent was obtained. Patient identification and proposed procedure were verified by the physician in the pre-procedure area. Mental Status Examination: alert and oriented. Airway Examination: normal oropharyngeal airway and neck mobility. Respiratory Examination: clear to auscultation. CV Examination: normal. Prophylactic Antibiotics: The patient does not require prophylactic antibiotics. Prior Anticoagulants: The patient has taken no previous anticoagulant or antiplatelet agents. ASA Grade Assessment: II - A patient with mild systemic disease. After reviewing the risks and benefits, the patient was deemed in satisfactory condition to undergo the procedure. The anesthesia plan was to use moderate sedation / analgesia (conscious sedation). Immediately prior to administration of medications, the patient was re-assessed for adequacy to receive sedatives. The heart rate, respiratory rate, oxygen saturations, blood pressure, adequacy of pulmonary ventilation, and response to care were monitored throughout the procedure. The physical status of the patient was re-assessed after the procedure. After obtaining informed consent, the endoscope was passed under direct vision. Throughout the procedure, the patient's blood pressure, pulse, and oxygen saturations were monitored continuously. The Colonoscope was introduced through the mouth, and advanced to the second part of duodenum. The upper GI endoscopy was accomplished without difficulty. The patient tolerated the procedure well. Moderate Sedation: Moderate (conscious) sedation was administered by the endoscopy nurse and supervised by the endoscopist. The patient's oxygen saturation, heart rate, blood pressure and response to care were monitored. Total physician intraservice time was 15 minutes. Scope In: 11:27:04 AM Scope Out: 11:34:54 AM Total Procedure Duration Time 0 hours 7 minutes 50 seconds Findings: LA Grade A (one or more mucosal breaks less than 5 mm, not extending between tops of 2 mucosal folds) esophagitis with no bleeding was found 38 to 40 cm from the incisors. Biopsies were taken with a cold forceps for histology. Verification of patient identification for the specimen was done. Estimated blood loss was minimal. A few localized, 5 mm non-bleeding erosions were found in the prepyloric region of the stomach. There were no stigmata of recent bleeding. Biopsies were taken with a cold forceps for histology. Verification of patient identification for the specimen was done. Estimated blood loss was minimal. Patchy mildly erythematous mucosa without active bleeding and with no stigmata of bleeding was found in the duodenal bulb. Biopsies were taken with a cold forceps for histology. Estimated blood loss was minimal. Impression: - LA Grade A reflux esophagitis. Biopsied. - Non-bleeding erosive gastropathy. Biopsied. - Erythematous duodenopathy. Biopsied. Recommendation: - Discharge patient to home. - Resume previous diet. - Continue present medications. - Await pathology results. Procedure Code(s): --- Professional --- 35304, Esophagogastroduodenoscopy, flexible, transoral; with biopsy, single or multiple 16823, 59, Moderate sedation services provided by the same physician or other qualified health customer care professional performing the diagnostic or therapeutic service that the sedation supports, requiring the presence of an independent trained observer to assist in the monitoring of the patient's level of consciousness and physiological status; initial 15 minutes of intraservice time, patient age 5 years or older CPT copyright 2017 [employer]. All rights reserved. The codes documented in this report are preliminary and upon air cargo specialist supervisor review may be revised to meet current compliance requirements. Alessandro Caicedo DO 06/01/2021 12:10:51 PM This report has been signed electronically. Number of Addenda: 1 Note Initiated On: 06/01/2021 11:13 AM Addendum Number: 1 Addendum Date: 12/13/2021 6:24:34 AM MAC was used as sedation for this procedure. Alessandro Caicedo DO 12/13/2021 6:24:38 AM This report has been signed electronically.
--- NOTE | 2021-06-01 12:12 | OP.CCLET_ITS ---
12/13/2021 Connor Melgar MD Re : Upper GI endoscopy procedure for Jackson Juan Dear Dr. Melgar This procedure was performed on May. My impressions and recommendations are as follows: Impressions : - LA Grade A reflux esophagitis. Biopsied. - Non-bleeding erosive gastropathy. Biopsied. - Erythematous duodenopathy. Biopsied. Recommendations : - Discharge patient to home. - Resume previous diet. - Continue present medications. - Await pathology results. My findings are described in the full procedure note, which is enclosed. If I can be of further assistance, please feel free to contact me at . Sincerely, Alessandro Caicedo, 06/01/2021 12:10:51 PM This report has been signed electronically.
--- NOTE | 2021-06-01 12:18 | OP.COLON_ITS ---
Patient Name: Jackson Juan Procedure Date: 06/01/2021 11:38 AM Date of : 1950 Age: 71 Procedure: Colonoscopy Indications: Clinically significant diarrhea of unexplained origin Providers: Alessandro Caicedo DO Medicines: See the Anesthesia note for documentation of the administered medications Patient Profile: This is a 71 year old female. Refer to note in patient chart for documentation of history and physical. Patient has symptoms of chronic abdominal cramping and chronic epigastric abdominal pain. Last Colonoscopy: 5 years ago. Complications: No immediate complications. Procedure: Pre-Anesthesia Assessment: - Prior to the procedure, a History and Physical was performed, and patient medications and allergies were reviewed. The patient is competent. The risks and benefits of the procedure and the sedation options and risks were discussed with the patient. All questions were answered and informed consent was obtained. Patient identification and proposed procedure were verified by the physician in the pre-procedure area. Mental Status Examination: alert and oriented. Airway Examination: normal oropharyngeal airway and neck mobility. Respiratory Examination: clear to auscultation. CV Examination: normal. Prophylactic Antibiotics: The patient does not require prophylactic antibiotics. Prior Anticoagulants: The patient has taken no previous anticoagulant or antiplatelet agents. ASA Grade Assessment: II - A patient with mild systemic disease. After reviewing the risks and benefits, the patient was deemed in satisfactory condition to undergo the procedure. The anesthesia plan was to use moderate sedation / analgesia (conscious sedation). Immediately prior to administration of medications, the patient was re-assessed for adequacy to receive sedatives. The heart rate, respiratory rate, oxygen saturations, blood pressure, adequacy of pulmonary ventilation, and response to care were monitored throughout the procedure. The physical status of the patient was re-assessed after the procedure. After I obtained informed consent, the scope was passed under direct vision. Throughout the procedure, the patient's blood pressure, pulse, and oxygen saturations were monitored continuously. The pediatric colonoscope was introduced through the anus and advanced to the terminal ileum. The colonoscopy was performed without difficulty. The patient tolerated the procedure well. The quality of the bowel preparation was fair. Moderate Sedation: Moderate (conscious) sedation was administered by the endoscopy nurse and supervised by the endoscopist. The patient's oxygen saturation, heart rate, blood pressure and response to care were monitored. Total physician intraservice time was 15 minutes. Scope In: 11:40:36 AM Scope Withdrawal Time 0 hours 12 minutes 54 seconds Scope Out: 12:02:09 PM Total Procedure Duration Time 0 hours 21 minutes 33 seconds Findings: The perianal and digital rectal examinations were normal. A single (solitary) four mm ulcer was found at the anus. No bleeding was present. No stigmata of recent bleeding were seen. Biopsies were taken with a cold forceps for histology. Verification of patient identification for the specimen was done. Estimated blood loss was minimal. An area of mildly congested mucosa was found in the sigmoid colon. Biopsies were taken with a cold forceps for histology. Verification of patient identification for the specimen was done. Estimated blood loss was minimal. The terminal ileum appeared normal. A moderate amount of stool was found in the recto-sigmoid colon, in the sigmoid colon, in the descending colon, at the splenic flexure and in the cecum, precluding visualization. Lavage of the area was performed using greater than 500 mL of sterile water, resulting in incomplete clearance with fair visualization. Impression: - Preparation of the colon was fair. - A single (solitary) ulcer at the anus. Biopsied. - Congested mucosa in the sigmoid colon. Biopsied. - The examined portion of the ileum was normal. - Stool in the recto-sigmoid colon, in the sigmoid colon, in the descending colon, at the splenic flexure and in the cecum. Recommendation: - Discharge patient to home. - Resume previous diet. - Continue present medications. - Await pathology results. - Repeat colonoscopy in 3 years because the bowel preparation was suboptimal. Procedure Code(s): --- Professional --- 53818, Colonoscopy, flexible; with biopsy, single or multiple 32954, 59, Moderate sedation services provided by the same physician or other qualified health plant health care technician performing the diagnostic or therapeutic service that the sedation supports, requiring the presence of an independent trained observer to assist in the monitoring of the patient's level of consciousness and physiological status; initial 15 minutes of intraservice time, patient age 5 years or older CPT copyright 2017 [employer]. All rights reserved. The codes documented in this report are preliminary and upon salesperson men's hats review may be revised to meet current compliance requirements. Alessandro Caicedo DO 06/01/2021 12:17:17 PM This report has been signed electronically. Number of Addenda: 1 Note Initiated On: 06/01/2021 11:38 AM Addendum Number: 1 Addendum Date: 12/13/2021 6:24:47 AM MAC was used as sedation for this procedure. Alessandro Caicedo DO 12/13/2021 6:24:51 AM This report has been signed electronically.
--- NOTE | 2021-06-01 12:18 | OP.CCLET_ITS ---
12/13/2021 Connor Melgar MD Re : Colonoscopy procedure for Jackson Juan Dear Dr. Melgar This procedure was performed on May. My impressions and recommendations are as follows: Impressions : - Preparation of the colon was fair. - A single (solitary) ulcer at the anus. Biopsied. - Congested mucosa in the sigmoid colon. Biopsied. - The examined portion of the ileum was normal. - Stool in the recto-sigmoid colon, in the sigmoid colon, in the descending colon, at the splenic flexure and in the cecum. Recommendations : - Discharge patient to home. - Resume previous diet. - Continue present medications. - Await pathology results. - Repeat colonoscopy in 3 years because the bowel preparation was suboptimal. My findings are described in the full procedure note, which is enclosed. If I can be of further assistance, please feel free to contact me at . Sincerely, Alessandro Caicedo, 06/01/2021 12:17:17 PM This report has been signed electronically.
== END 2021-06-01 23:59 | disposition home or self-care (01) ==
LOC: EN 09:09 → AC 09:11
PROVIDERS: PCP Family Medicine; Referring Provider Family Medicine; Visit Provider Internal Medicine Gastroenterology
PROC: 0DJD8ZZ Inspection of Lower Intestinal Tract, Via Natural or Artificial Opening Endoscopic (ICD-10-PCS; CPT 45378; principal; 2021-06-01 10:10)
DX: K62.6 Ulcer of anus and rectum (principal); K29.50 Unspecified chronic gastritis without bleeding; B19.10 Unspecified viral hepatitis B without hepatic coma; K21.00 Gastro-esophageal reflux disease with esophagitis, without bleeding; R19.7 Diarrhea, unspecified; K63.89 Other specified diseases of intestine; K31.89 Other diseases of stomach and duodenum; E03.9 Hypothyroidism, unspecified; F41.9 Anxiety disorder, unspecified; F32.A Depression, unspecified; E78.5 Hyperlipidemia, unspecified; M19.90 Unspecified osteoarthritis, unspecified site; Z79.899 Other long term (current) drug therapy; M79.7 Fibromyalgia
CPT/HCPCS: 45380; 43239; 88305; 88313; 88342; J7120; J2405

== ENCOUNTER → 2022-01-11 | Outpatient (CLI) | payer MEDICARE, OTHER, SELFPAY ==
--- NOTE | 2022-01-11 11:50 | BI_ITS ---
MAMMOGRAPHY - BILATERAL SCREENING REASON FOR EXAM: Female, 72 years old. Routine annual screening examination. PERTINENT HISTORY: Non-contributory. TECHNIQUE: Digital bilateral breast tracy (3D mammographic acquisition) in the CC and MLO projections. 2-D mediolateral oblique (MLO) and craniocaudad (CC) views of both breasts were obtained. CAD: Full Field Digital Mammography with Computer Added Detection was performed. COMPARISON: Comparison is made with prior study of 12/02/2020 and 11/20/2019. FINDINGS: Breast Composition: The breasts are heterogeneously dense, which may obscure small masses. There are no dominant masses or suspicious calcifications. Stable small benign appearing bilateral axillary lymph nodes. No other significant abnormalities are identified. There has been no significant change since the prior study. BI/SCRN MAMM (CAD)W/TRACY BILAT IMPRESSION: Stable bilateral screening mammogram. Yearly follow-up mammogram recommended. (A) ASSESSMENT CATEGORY: BIRADS Category 2: Benign. A letter regarding these results will be sent to the patient by the facility within 30 days. Approximately 10% of breast cancers are not detected by mammography. A normal mammogram should not delay biopsy of a clinically suspicious abnormality. [id number] Electronically Signed: Ralph Santos MD at 12:55 EDT ,
== END | disposition home or self-care (01) ==
PROVIDERS: PCP Family Medicine; Referring Provider Student in an Organized Health Care Education/Training Program; Visit Provider Student in an Organized Health Care Education/Training Program
DX: Z12.31 Encounter for screening mammogram for malignant neoplasm of breast (principal)
CPT/HCPCS: 77063; 77067

== ENCOUNTER → 2022-02-16 | Outpatient (CLI) | payer MEDICARE, OTHER, SELFPAY ==
[2022-02-16 16:35] LABS: T4 Free Direct 1.27 ng/dL (0.76-1.46); Thyroid Stim Hormone (TSH) 0.45 uIU/mL (0.358-3.74)
== END | disposition home or self-care (01) ==
PROVIDERS: PCP Family Medicine; Visit Provider Internal Medicine Endocrinology, Diabetes & Metabolism
DX: E78.5 Hyperlipidemia, unspecified (principal); E03.9 Hypothyroidism, unspecified
CPT/HCPCS: 36415; 84439; 84443

== ENCOUNTER → 2022-11-09 | Outpatient (CLI) | payer MEDICARE, OTHER, SELFPAY ==
--- NOTE | 2022-11-09 13:04 | ECHOD_ITS ---
Reason For Study: JUANJOSE Procedure This was a 2D Doppler, Color Flow transthoracic echocardiogram. Exam performed in department. Left Ventricle Normal size and thickness. The left ventricular ejection fraction is 65 %. Stage 1 diastolic dysfunction. Right Ventricle Normal right ventricle. Atria The left and right atria are normal. Mitral Valve Trivial mitral valve insufficiency. Tricuspid Valve Mild tricuspid valve insufficiency. Normal pulmonary artery pressure. Aortic Valve Trisinus/trileaflet aortic valve. Mild (1+) aortic valve insufficiency. Pulmonic Valve The pulmonic valve is not well visualized. Great Vessels Normal sized aortic root. Pericardium/Pleural No pericardial effusion. MMode/2D Measurements & Calculations LVIDd: 4.4 cm IVSd: 0.80 cm Ao root diam: 3.0 cm LVIDs: 3.0 cm LVPWd: 0.79 cm RVDd: 2.3 cm FS: 31.7 % LAV(MOD-bp): 29.7 ml LVAd ap4: 21.8 cm2 SV(MOD-sp4): 32.1 ml LAV(MOD-bp) Indexed: 16.8 ml/m2 LVLd ap4: 7.8 cm LAV(MOD-sp2): 28.5 ml EDV(MOD-sp4): 51.1 ml LAV(MOD-sp4): 24.9 ml EDV(sp4-el): 51.5 ml LVAs ap4: 11.4 cm2 LVLs ap4: 6.2 cm ESV(MOD-sp4): 19.1 ml ESV(sp4-el): 17.7 ml EF(MOD-sp4): 62.7 % EF(sp4-el): 65.6 % SV(sp4-el): 33.8 ml LA A4 area: 11.9 cm2 LA dimension(2D): 3.1 cm RA A4 area: 11.6 cm2 TAPSE: 1.8 cm Time Measurements MV dec time: 0.27 sec Doppler Measurements & Calculations MV E max dmitry: 55.7 cm/sec Lat Peak E' Dmitry: 10.5 cm/sec Med Peak E' Dmitry: 4.9 cm/sec MV A max dmitry: 81.3 cm/sec E/E' lat: 5.3 E/E' med: 11.4 MV E/A: 0.68 MV V2 max: 87.8 cm/sec Ao V2 max: 123.4 cm/sec MV max P.1 mmHg MV dec slope: 209.6 cm/sec2 Ao max P.1 mmHg MV V2 mean: 49.9 cm/sec Ao V2 mean: 83.9 cm/sec MV mean P.1 mmHg Ao mean P.2 mmHg MV V2 VTI: 26.4 cm Ao V2 VTI: 28.8 cm AV (velocity ratio): 0.95 AI max dmitry: 348.5 cm/sec LV V1 max: 114.3 cm/sec AI max P.6 mmHg LV V1 max P.3 mmHg LV V1 mean P.7 mmHg AI dec slope: 239.4 cm/sec2 LV V1 mean: 75.1 cm/sec AI P1/2t: 426.4 msec LV V1 VTI: 27.4 cm ECHO/Echo Complete Interpretation Summary The left ventricular ejection fraction is 65 %. Stage 1 diastolic dysfunction. Mild tricuspid valve insufficiency. Mild (1+) aortic valve insufficiency. Ordering Physician: Wil Wise V Referring Physician: Wil Wise V Performed By: Isabel Grant RCS
== END | disposition home or self-care (01) ==
LOC: CVS 13:02
PROVIDERS: PCP Family Medicine; Referring Provider Internal Medicine Pulmonary Disease; Visit Provider Internal Medicine Pulmonary Disease
DX: G47.33 Obstructive sleep apnea (adult) (pediatric) (principal); G47.37 Central sleep apnea in conditions classified elsewhere
CPT/HCPCS: 93306

== ENCOUNTER → 2022-12-03 | Outpatient (CLI) | payer MEDICARE, OTHER, SELFPAY ==
--- NOTE | 2022-12-03 16:14 | NEURO_ITS ---
NCS and/or EMG Patient Report Findings: Nerve conduction studies were performed in the right upper extremity. The right median motor study recording the abductor pollicis brevis showed a borderline amplitude, prolonged distal latency and slowed conduction velocity. The right ulnar motor study recording the abductor digiti minimi showed a normal amplitude, normal distal latency and normal conduction velocity. No conduction block or focal slowing was present across the elbow. The right median sensory response recording digit two showed a reduced amplitude, prolonged latency and markedly slowed conduction velocity. The right ulnar sensory response recording digit five showed a normal amplitude, latency and conduction velocity. The right radial sensory response recording over the extensor snuff box showed a normal amplitude, latency and conduction velocity. Needle EMG of the right upper extremity muscles was performed. No denervation was seen in any muscle. Fasciculations were seen in the abductor pollicis brevis. Motor units in the abductor pollicis brevis were slightly long duration and polyphasic. Motor units in the triceps and, to a lesser extent, flexor carpi radialis were large amplitude and long duration. All other motor unit morphology, activation and recruitment patterns were normal. Impression: This is an abnormal study. There is electrophysiologic evidence of median neuropathy across the right wrist. The pathophysiology was demyelinating though there was evidence of secondary axonal loss. These findings are compatible with the clinical diagnosis of carpal tunnel syndrome. In addition, there is electrophysiologic evidence of a superimpoased, mild, chronic, right C7 radiculopathy. Charles Braden D.O. Multi Select Codes Neurology Neurology Interp Codes: 98817-01 Musc test done w/n test comp (interp) and 00482-59 [facility] cndj tst 5-6 studies (interp)
== END | disposition home or self-care (01) ==
LOC: PSN 15:25
PROVIDERS: PCP Family Medicine; Referring Provider Physician Assistant; Visit Provider Physician Assistant
DX: R20.0 Anesthesia of skin (principal); R20.2 Paresthesia of skin; M79.89 Other specified soft tissue disorders
CPT/HCPCS: 95886; 95909

== ENCOUNTER → 2023-01-14 | Outpatient (CLI) | payer MEDICARE, OTHER, SELFPAY ==
--- NOTE | 2023-01-14 10:07 | BI_ITS ---
MAMMOGRAPHY - BILATERAL SCREENING REASON FOR EXAM: Female, 73 years old. Routine annual screening examination. PERTINENT HISTORY: Non-contributory. Remote left breast aspiration. TECHNIQUE: Digital bilateral breast tracy (3D mammographic acquisition) in the CC and MLO projections. 2-D mediolateral oblique (MLO) and craniocaudad (CC) views of both breasts were obtained. CAD: Full Field Digital Mammography with Computer Added Detection was performed. COMPARISON: Comparison is made with prior study January 11, 2022 and December 02, 2020. FINDINGS: Breast Composition: The breasts are heterogeneously dense, which may obscure small masses. There are no dominant masses or suspicious calcifications. Stable small benign-appearing bilateral axillary lymph nodes. No other significant abnormalities are identified. There has been no significant change since the prior study. BI/SCRN MAMM (CAD)W/TRACY BILAT IMPRESSION: Stable bilateral screening mammogram. Yearly follow-up mammogram recommended. (A) ASSESSMENT CATEGORY: BIRADS Category 2: Benign. A letter regarding these results will be sent to the patient by the facility within 30 days. Approximately 10% of breast cancers are not detected by mammography. A normal mammogram should not delay biopsy of a clinically suspicious abnormality. [id number] Electronically Signed: Ralph Santos MD at 12:52 EDT ,
== END | disposition home or self-care (01) ==
LOC: OPBI 10:06
PROVIDERS: PCP Family Medicine; Referring Provider Family Medicine; Visit Provider Family Medicine
DX: Z12.31 Encounter for screening mammogram for malignant neoplasm of breast (principal)
CPT/HCPCS: 77063; 77067

== ENCOUNTER → 2024-01-16 | Outpatient (CLI) | payer MEDICARE, OTHER, SELFPAY ==
--- NOTE | 2024-01-16 15:07 | BI_ITS ---
MAMMOGRAPHY - BILATERAL SCREENING REASON FOR EXAM: Female, 74 years old. Routine annual screening examination. PERTINENT HISTORY: Non-contributory. TECHNIQUE: Digital bilateral breast tracy (3D mammographic acquisition) in the CC and MLO projections. 2-D mediolateral oblique (MLO) and craniocaudad (CC) views of both breasts were obtained. CAD: Full Field Digital Mammography with Computer Added Detection was performed. COMPARISON: Comparison is made with prior study January 14, 2023 and January 11, 2022. FINDINGS: Breast Composition: The breasts are heterogeneously dense, which may obscure small masses. There is a 4.6 mm x 8.1 mm well-defined nodule in the slightly inferior deep central aspect of the right breast. There appears to be a fatty hilum. This most likely represents a small lymph node. Correlation with ultrasound is recommended. Stable small benign-appearing bilateral axillary lymph nodes. No other significant abnormalities are identified. There has been no significant change since the prior study. BI/SCRN MAMM (CAD)W/TRACY BILAT IMPRESSION: Stable bilateral screening mammogram. Ultrasound subcentimeter nodule in the right breast as described is recommended for further evaluation. ASSESSMENT CATEGORY: BIRADS Category 0: Incomplete. Need additional imaging evaluation. A letter regarding these results will be sent to the patient by the facility within 30 days. Approximately 10% of breast cancers are not detected by mammography. A normal mammogram should not delay biopsy of a clinically suspicious abnormality. [id number] Electronically Signed: Ralph Santos MD at 8:23 EDT ,
== END | disposition home or self-care (01) ==
LOC: OPBI 15:05
PROVIDERS: PCP Family Medicine; Referring Provider Family Medicine; Visit Provider Family Medicine
DX: Z12.31 Encounter for screening mammogram for malignant neoplasm of breast (principal)
CPT/HCPCS: 77063; 77067

== ENCOUNTER → 2024-01-23 | Outpatient (CLI) | payer MEDICARE, OTHER, SELFPAY | END | disposition home or self-care (01) | LOC: OPUS 10:49 | PROVIDERS: PCP Family Medicine; Referring Provider Family Medicine; Visit Provider Family Medicine | DX: R92.8 Other abnormal and inconclusive findings on diagnostic imaging of breast (principal) | CPT/HCPCS: 76642 ==

== ENCOUNTER → 2024-08-17 | Outpatient (CLI) | payer MEDICARE, OTHER, SELFPAY | END | disposition home or self-care (01) | LOC: LABSPEC 15:14 | PROVIDERS: PCP Family Medicine; Visit Provider Family Medicine | DX: H04.332 Acute lacrimal canaliculitis of left lacrimal passage (principal) | CPT/HCPCS: 87070; 87075; 87077; 87205 ==